=== PATIENT | female | born 1935 | race Caucasian/White ===

== ENCOUNTER 2017-05-09 07:10 | Outpatient (CLI) | payer MEDICARE ==
[~2017-05-09 07:10] MED LIST: ASPI-611 PO; ATOR80TA PO; BRIM5DRO16 EACHEYE; CHOL200035 PO; CLOP75TA35 PO; CYAN500T46 PO; ESCI20TA38 PO; EZET10TA13 PO; LEVO50TA PO; LISI-604 PO; METO50TA16 PO; MULT-342 PO; NITR0.4T51 SL; NORCO10T PO; PANT-47 PO; TRIM100T PO; VITC500T PO; [UNRECOGNIZED DRUG - OTHER] SQ
== END 2017-05-09 23:59 | disposition home or self-care (01) ==
LOC: DIABETIC 07:10
PROVIDERS: ATTEND Specialist
DX: E10.9 Type 1 diabetes mellitus without complications (principal); I10 Essential (primary) hypertension
CPT/HCPCS: G0108

== ENCOUNTER 2017-08-08 04:50 | Outpatient (CLI) | payer MEDICARE | END 2017-08-08 23:59 | disposition home or self-care (01) | LOC: DIABETIC 04:50 | PROVIDERS: ATTEND Specialist | DX: E10.9 Type 1 diabetes mellitus without complications (principal); I10 Essential (primary) hypertension | CPT/HCPCS: G0108 ==

== ENCOUNTER 2018-01-02 02:16 | Outpatient (CLI) | payer MEDICARE | END 2018-01-02 23:59 | disposition home or self-care (01) | LOC: DIABETIC 02:16 | PROVIDERS: ATTEND Specialist | DX: E10.9 Type 1 diabetes mellitus without complications (principal); I10 Essential (primary) hypertension; Z79.82 Long term (current) use of aspirin; Z95.1 Presence of aortocoronary bypass graft | CPT/HCPCS: G0108 ==

== ENCOUNTER 2018-01-29 18:09 | Inpatient (IN) | payer MEDICARE ==
[~2018-01-29] VITALS: Ht 170.2 cm; Wt 70.2 kg
[~2018-01-29 18:09] MED LIST changes: +0.9 % SODIUM CHLORIDE 10 ML VIAL ONE; +DOBUTamine/D5W 500mg/250ml premix IV ONE; +NORepinephrine 1 mg/ml inj IV ONE; +amiodarone 50MG/ML inj IV ONE; +atropine 0.1mg/ml 10ml syringe ONE; +calcium chloride 100 MG/1 ML inj IV ONE; +epiNEPHrine 0.1mg/ml 10ml syringe ONE; +magnesium sulf 1 GM/2 ML ONE; +sodium bicarbonate (8.4%) 1 mEq/ml syringe ONE
[2018-01-29 18:27] LABS: BASOPHILS % (AUTO) 0.3 % (0-1); EOSINOPHILS # (AUTO) 0.1 X10'3 (0-0.9); EOSINOPHILS % (AUTO) 2.5 % (0-6); HEMATOCRIT 37.7 % (35.0-45.0); HEMOGLOBIN 12.7 g/dl (12.0-16.0); LYMPHOCYTES # (AUTO) 1.1 X10'3 (1.1-4.8); LYMPHOCYTES % (AUTO) 22.1 % (21-51); MEAN CORPUSCULAR HEMOGLOBIN 34.3 PG (27.0-31.0); MEAN CORPUSCULAR HGB CONC 33.7 % (33.0-36.5); MEAN CORPUSCULAR VOLUME 101.9 FL (78-98); MEAN PLATELET VOLUME 10.3 FL (7.4-10.4); MONOCYTES # (AUTO) 0.4 X10'3 (0-0.9); MONOCYTES % (AUTO) 8.1 % (2-12); NEUTROPHILS # (AUTO) 3.3 X10'3 (1.8-7.7); PLATELET COUNT 160 X10'3 (140-440); RED CELL DISTRIBUTION WIDTH 13.5 % (11.5-14.5); WHITE BLOOD COUNT 4.9 X10'3 (4.5-11.0)
[2018-01-29 18:42] LABS: ALANINE AMINOTRANSFERASE 24 U/L (12-78); ALBUMIN 3.2 G/DL (3.4-5.0); ALBUMIN/GLOBULIN RATIO 1.3 (1.1-1.5); ALKALINE PHOSPHATASE 95 IU/L (46-116); ANION GAP 10 (8-16); ASPARTATE AMINO TRANSFERASE 24 U/L (10-37); BILIRUBIN,TOTAL 0.6 MG/DL (0.1-1.0); BLOOD UREA NITROGEN 23 MG/DL (7-18); BUN/CREATININE RATIO 17.2 (6.6-38.0); CALCIUM 8.4 MG/DL (8.5-10.1); CHLORIDE 98 MMOL/L (99-107); CREATININE 1.34 MG/DL (0.40-0.90); POTASSIUM 5.1 MMOL/L (3.5-5.1); SODIUM 135 MMOL/L (135-145); TOTAL CARBON DIOXIDE 27.2 MMOL/L (24-32); TOTAL PROTEIN 5.6 G/DL (6.4-8.2); eGFR 38 ML/MIN
[2018-01-29 18:46] LABS: INR 1.1 INR; PARTIAL THROMBOPLASTIN TIME 23 SECONDS (22-32); PROTHROMBIN TIME 10.9 SECONDS (9.0-12.0)
[2018-01-29 18:48] LABS: GLUCOSE 564 MG/DL (70-104)
[2018-01-29] MEDS ORDERED: nitroGLYCERIN 1gm ointment UD TP ONE (18:55)
[2018-01-29] MEDS ORDERED: insulin regular, human 10 units/0.1 ml syringe IV ONE (18:55)
[2018-01-29] MEDS ORDERED: HYDROcodone/acetaminophen 5mg/325mg tablet PO PRN (20:25)
[2018-01-29] MEDS ORDERED: acetaminophen 650mg rectal suppository RC PRN (20:25)
[2018-01-29] MEDS ORDERED: metoclopramide 5 mg/ml inj IV PRN (20:25)
[2018-01-29] MEDS ORDERED: morphine 2 MG/ML inj. syringe IV PRN (20:25)
[2018-01-29] MEDS ORDERED: diphenhydrAMINE 25mg capsule PO PRN (20:25)
[2018-01-29] MEDS ORDERED: acetaminophen 325mg tablet PO PRN (20:25)
[2018-01-29] MEDS ORDERED: HYDROmorphone 1 mg/ml syringe IV PRN ×2 (20:25)
[2018-01-29] MEDS ORDERED: diphenhydrAMINE 50 mg/ml inj IV PRN (20:25)
[2018-01-29] MEDS ORDERED: bisacodyl 10mg suppository rectal RC PRN (20:25)
[2018-01-29] MEDS ORDERED: magnesium hydroxide 30ml (MOM) UD suspension PO PRN (20:25)
[2018-01-29] MEDS ORDERED: mag hydrox/Alum hydrox/simeth 30ml oral suspension PO PRN (20:25)
[2018-01-29] MEDS ORDERED: glucagon, human recombinant 1mg kit SUBCUT PRN (20:35)
[2018-01-29] MEDS ORDERED: MESSAGE TO PHARMACY PO ONE (20:35)
[2018-01-29] MEDS ORDERED: dextrose ORAL solution 15 GM/59 ML bottle PO PRN ×2 (20:35)
[2018-01-29] MEDS ORDERED: dextrose 50%-water 50ml dispensing syringe IV PRN ×2 (20:35)
[2018-01-29] MEDS ORDERED: metoprolol tartrate 1mg/ml inj IV PRN (20:40)
[2018-01-29] MEDS ORDERED: aminophylline 250mg/10ml inj. IV PRN (20:40)
[2018-01-29] MEDS ORDERED: nitroGLYCERIN 0.4mg SUBLingual tab SL PRN (20:40)
[2018-01-29] MEDS ORDERED: regadenoson 0.4mg/5ml syringe IV ONE (20:40)
[2018-01-29] MEDS ORDERED: temazepam 15mg capsule PO PRN (21:00)
[2018-01-29] MEDS: sodium chloride 0.45% 1,000 ML IV SCH ×2 (21:14→22:22)
[2018-01-29] MEDS: lisinopril 10 MG tablet PO SCH (21:14)
[2018-01-29] MEDS: HYDROcodone/acetaminophen 10/325mg tab PO PRN (21:15)
[2018-01-29] MEDS ORDERED: RANO10003 PO (21:18)
[2018-01-29 21:38] LABS: D-DIMER 0.55 MG/L FEU (0-0.50)
[2018-01-29 22:00] VITALS: BP 119/75
[2018-01-29 22:05] LABS: CLARITY,URINE CLEAR (Clear); COLOR,URINE YELLOW (Yellow); GLUCOSE, URINE >=1000 mg/dl (Neg); KETONES,URINE 15 mg/dl (Neg); LEUKOCYTE ESTERASE ,URINE NEGATIVE (Neg); NITRITES, URINE POSITIVE (Neg); OCCULT BLOOD,URINE SMALL (Neg); PH,URINE 5.5 (4.8-8.0); PROTEIN,URINE NEGATIVE (Neg); UROBILINOGEN,URINE 0.2 E.U/dL (0.2-1.0)
[2018-01-29 22:22] LABS: UA COLLECTION TYPE NON-SPECIFIED
[2018-01-29 22:24] LABS: BACTERIA,URINE 4+ /HPF (Neg); MUCUS STRANDS NONE SEEN /LPF (Neg); RBC,URINE 0-2 /HPF (0-2); SQUAMOUS EPITHELIAL CELL,UR NONE SEEN /LPF (FEW); WBC,URINE 0-4 /HPF (0-4)
[2018-01-29 23:31] LABS: HEMOGLOBIN A1C 7.2 % (4.5-6.2)
[2018-01-29 23:35] LABS: LIPASE < 50 U/L (73-393); MAGNESIUM 1.9 MG/DL (1.5-2.4); PHOSPHORUS 3.2 MG/DL (2.3-4.5)
[2018-01-29] MEDS ORDERED: heparin 10,000 units/1 ML INJ IV ONE (23:50)
[2018-01-30] VITALS (11 sets, daily range): BP systolic 76–157; BP diastolic 38–93
[2018-01-30 00:54] LABS: BASOPHILS % (AUTO) 0.3 % (0-1); EOSINOPHILS # (AUTO) 0.1 X10'3 (0-0.9); EOSINOPHILS % (AUTO) 2.6 % (0-6); HEMATOCRIT 35.8 % (35.0-45.0); HEMOGLOBIN 11.7 g/dl (12.0-16.0); LYMPHOCYTES # (AUTO) 1.6 X10'3 (1.1-4.8); LYMPHOCYTES % (AUTO) 28.1 % (21-51); MEAN CORPUSCULAR HEMOGLOBIN 33.4 PG (27.0-31.0); MEAN CORPUSCULAR HGB CONC 32.7 % (33.0-36.5); MEAN CORPUSCULAR VOLUME 102.3 FL (78-98); MONOCYTES # (AUTO) 0.5 X10'3 (0-0.9); MONOCYTES % (AUTO) 9.5 % (2-12); NEUTROPHILS # (AUTO) 3.5 X10'3 (1.8-7.7); NEUTROPHILS % (AUTO) 59.5 % (42-75); PLATELET COUNT 151 X10'3 (140-440); RED CELL DISTRIBUTION WIDTH 12.6 % (11.5-14.5); WHITE BLOOD COUNT 5.7 X10'3 (4.5-11.0)
[2018-01-30 01:04] LABS: ALANINE AMINOTRANSFERASE 24 U/L (12-78); ALBUMIN 2.9 G/DL (3.4-5.0); ALBUMIN/GLOBULIN RATIO 1.2 (1.1-1.5); ALKALINE PHOSPHATASE 87 IU/L (46-116); ANION GAP 6 (8-16); ASPARTATE AMINO TRANSFERASE 22 U/L (10-37); BILIRUBIN,TOTAL 0.4 MG/DL (0.1-1.0); BLOOD UREA NITROGEN 23 MG/DL (7-18); BUN/CREATININE RATIO 21.1 (6.6-38.0); CALCIUM 8.4 MG/DL (8.5-10.1); CHLORIDE 102 MMOL/L (99-107); CREATININE 1.09 MG/DL (0.40-0.90); GLUCOSE 234 MG/DL (70-104); POTASSIUM 3.9 MMOL/L (3.5-5.1); SODIUM 138 MMOL/L (135-145); TOTAL CARBON DIOXIDE 30.3 MMOL/L (24-32); TOTAL PROTEIN 5.4 G/DL (6.4-8.2); eGFR 48 ML/MIN
[2018-01-30 01:07] LABS: CHOL/HDL RATIO 2.1 (0.00-4.99); CHOLESTEROL 129 MG/DL (0-200); HDL CHOLESTEROL 62 MG/DL (35-60); LDL CHOLESTEROL 60 MG/DL (50-100); TRIGLYCERIDES 37 MG/DL (20-135)
[2018-01-30 01:23] LABS: INR 1.1 INR; PARTIAL THROMBOPLASTIN TIME 23 SECONDS (22-32); PROTHROMBIN TIME 11.3 SECONDS (9.0-12.0)
[2018-01-30] MEDS: HYDROcodone/acetaminophen 10/325mg tab PO PRN ×2 (07:27→18:49)
[2018-01-30] MEDS ORDERED: heparin, porcine 5000 units/ml vial SQ SCH (08:00)
[2018-01-30] MEDS ORDERED: nitroGLYCERIN 0.2mg/hour patch TD SCH ×2 (08:00→14:50)
[2018-01-30] MEDS ORDERED: escitalopram 20mg tablet PO SCH (08:00)
[2018-01-30] MEDS ORDERED: non-formulary drug (Levothyroxine Sodium (Synthroid) 1 TAB) PO SCH (08:00)
[2018-01-30] MEDS ORDERED: ASPIRIN 81 MG PO SCH (08:00)
[2018-01-30] MEDS ORDERED: non-formulary drug (Atorvastatin Calcium* (Lipitor*) 1 TAB) PO SCH (08:00)
[2018-01-30] MEDS: ezetimibe 10mg tablet PO SCH (08:31)
[2018-01-30] MEDS: levoTHYROXINE 25mcg tablet PO SCH (08:31)
[2018-01-30] MEDS: clopidogrel 75mg tablet PO SCH (08:32)
[2018-01-30] MEDS: citalopram 20mg tablet PO SCH (08:32)
[2018-01-30] MEDS: docusate sod 100mg capsule PO SCH ×2 (08:32→20:00)
[2018-01-30] MEDS: aspirin 81mg tablet.DR PO SCH (08:32)
[2018-01-30] MEDS: lisinopril 10 MG tablet PO SCH (08:32)
[2018-01-30] MEDS: atorvastatin 20mg tablet PO SCH (08:32)
[2018-01-30] MEDS: pantoprazole 40mg Tablet.DR PO SCH (08:32)
[2018-01-30] MEDS: metoprolol tartrate 25mg tablet PO SCH ×2 (08:33→20:00)
[2018-01-30] MEDS: CefTRIAXone/D5W-Rocephin 1gm 50 ML IV SCH (11:07)
[2018-01-30] MEDS: ranolazine 500mg SR tablet (Q12H) PO SCH ×2 (11:14→20:27)
[2018-01-30] MEDS: nitroGLYCERIN 0.4mg SUBLingual tab SL PRN ×2 (12:10→13:22)
[2018-01-30] MEDS: isosorbide mononitrate 30mg tab.SR.24H PO SCH (13:52)
[2018-01-30] MEDS: insulin Lispro (HumaLOG) vial - multi-dose SQ SCH ×2 (14:05→22:49)
[2018-01-30] MEDS ORDERED: morphine 2 MG/ML inj. syringe IV ONE (14:25)
[2018-01-30] MEDS: sodium chloride 0.45% 1,000 ML IV SCH ×2 (15:30→18:42)
[2018-01-30] MEDS: heparin 10,000 units/1 ML INJ IV PRN (17:07)
[2018-01-30] MEDS: lactobacillus rhamnosus 10,000 MMU CELLS/CAPSULE PO SCH (20:27)
[2018-01-31 03:00] VITALS: BP 127/49
[2018-01-31] MEDS: sodium chloride 0.45% 1,000 ML IV SCH ×2 (03:33→13:26)
[2018-01-31 05:25] LABS: BASOPHILS % (AUTO) 0.3 % (0-1); EOSINOPHILS # (AUTO) 0.2 X10'3 (0-0.9); EOSINOPHILS % (AUTO) 3.9 % (0-6); HEMATOCRIT 30.4 % (35.0-45.0); HEMOGLOBIN 10.3 g/dl (12.0-16.0); LYMPHOCYTES # (AUTO) 1.6 X10'3 (1.1-4.8); LYMPHOCYTES % (AUTO) 29.8 % (21-51); MEAN CORPUSCULAR HEMOGLOBIN 34.4 PG (27.0-31.0); MEAN CORPUSCULAR HGB CONC 33.8 % (33.0-36.5); MEAN CORPUSCULAR VOLUME 101.8 FL (78-98); MEAN PLATELET VOLUME 10.5 FL (7.4-10.4); MONOCYTES # (AUTO) 0.5 X10'3 (0-0.9); MONOCYTES % (AUTO) 9.2 % (2-12); NEUTROPHILS # (AUTO) 3.1 X10'3 (1.8-7.7); NEUTROPHILS % (AUTO) 56.8 % (42-75); PLATELET COUNT 133 X10'3 (140-440); RED BLOOD COUNT 2.98 X10'6 (4.20-5.60); RED CELL DISTRIBUTION WIDTH 13.4 % (11.5-14.5); WHITE BLOOD COUNT 5.4 X10'3 (4.5-11.0)
[2018-01-31 05:57] LABS: ALANINE AMINOTRANSFERASE 18 U/L (12-78); ALBUMIN 2.5 G/DL (3.4-5.0); ALBUMIN/GLOBULIN RATIO 1.2 (1.1-1.5); ALKALINE PHOSPHATASE 72 IU/L (46-116); ANION GAP 5 (8-16); ASPARTATE AMINO TRANSFERASE 29 U/L (10-37); BILIRUBIN,TOTAL 0.4 MG/DL (0.1-1.0); BLOOD UREA NITROGEN 24 MG/DL (7-18); BUN/CREATININE RATIO 19.4 (6.6-38.0); CHLORIDE 102 MMOL/L (99-107); CREATININE 1.24 MG/DL (0.40-0.90); GLUCOSE 321 MG/DL (70-104); POTASSIUM 4.3 MMOL/L (3.5-5.1); SODIUM 135 MMOL/L (135-145); TOTAL PROTEIN 4.6 G/DL (6.4-8.2); eGFR 41 ML/MIN
[2018-01-31 06:00] VITALS: BP 127/21
[2018-01-31] MEDS: morphine 2 MG/ML inj. syringe IV PRN (07:29)
[2018-01-31] MEDS: lisinopril 10 MG tablet PO SCH (07:31)
[2018-01-31] MEDS: ezetimibe 10mg tablet PO SCH (07:31)
[2018-01-31] MEDS: aspirin 81mg tablet.DR PO SCH (07:31)
[2018-01-31] MEDS: CefTRIAXone/D5W-Rocephin 1gm 50 ML IV SCH (07:31)
[2018-01-31] MEDS: levoTHYROXINE 25mcg tablet PO SCH (07:31)
[2018-01-31] MEDS: lactobacillus rhamnosus 10,000 MMU CELLS/CAPSULE PO SCH ×2 (07:31→19:26)
[2018-01-31] MEDS: atorvastatin 20mg tablet PO SCH (07:31)
[2018-01-31] MEDS: isosorbide mononitrate 30mg tab.SR.24H PO SCH (07:32)
[2018-01-31] MEDS: ranolazine 500mg SR tablet (Q12H) PO SCH ×2 (07:32→19:26)
[2018-01-31] MEDS: pantoprazole 40mg Tablet.DR PO SCH (07:32)
[2018-01-31] MEDS: citalopram 20mg tablet PO SCH (07:32)
[2018-01-31] MEDS: clopidogrel 75mg tablet PO SCH (07:32)
[2018-01-31] MEDS: metoprolol tartrate 25mg tablet PO SCH ×2 (07:32→19:26)
[2018-01-31] MEDS: nitroGLYCERIN 0.4mg SUBLingual tab SL PRN ×3 (07:33→08:39)
[2018-01-31] MEDS: docusate sod 100mg capsule PO SCH ×2 (07:33→19:26)
[2018-01-31] MEDS: insulin Lispro (HumaLOG) vial - multi-dose SQ SCH ×3 (08:08→22:32)
[2018-01-31] MEDS ORDERED: isosorbide mononitrate 30mg tab.SR.24H PO ONE (10:50)
[2018-01-31 11:00] VITALS: BP 125/53
[2018-01-31] MEDS: heparin 10,000 units/1 ML INJ IV PRN (11:28)
[2018-01-31] MEDS: HYDROcodone/acetaminophen 10/325mg tab PO PRN ×2 (11:40→19:29)
[2018-01-31 15:00] VITALS: BP 107/44
[2018-01-31 23:00] VITALS: BP 147/67
[2018-02-01] VITALS (7 sets, daily range): BP systolic 97–144; BP diastolic 38–64
[2018-02-01 01:57] LABS: BASOPHILS % (AUTO) 0.3 % (0-1); EOSINOPHILS # (AUTO) 0.2 X10'3 (0-0.9); EOSINOPHILS % (AUTO) 2.8 % (0-6); HEMATOCRIT 29.7 % (35.0-45.0); HEMOGLOBIN 10.2 g/dl (12.0-16.0); LYMPHOCYTES # (AUTO) 2.3 X10'3 (1.1-4.8); LYMPHOCYTES % (AUTO) 31.8 % (21-51); MEAN CORPUSCULAR HGB CONC 34.4 % (33.0-36.5); MEAN CORPUSCULAR VOLUME 101.7 FL (78-98); MEAN PLATELET VOLUME 11.3 FL (7.4-10.4); MONOCYTES # (AUTO) 0.5 X10'3 (0-0.9); MONOCYTES % (AUTO) 7.1 % (2-12); NEUTROPHILS # (AUTO) 4.2 X10'3 (1.8-7.7); PLATELET COUNT 133 X10'3 (140-440); RED BLOOD COUNT 2.92 X10'6 (4.20-5.60); RED CELL DISTRIBUTION WIDTH 12.7 % (11.5-14.5); WHITE BLOOD COUNT 7.2 X10'3 (4.5-11.0)
[2018-02-01 02:03] LABS: ALANINE AMINOTRANSFERASE 24 U/L (12-78); ALBUMIN 2.4 G/DL (3.4-5.0); ALBUMIN/GLOBULIN RATIO 1.1 (1.1-1.5); ALKALINE PHOSPHATASE 70 IU/L (46-116); ANION GAP 8 (8-16); ASPARTATE AMINO TRANSFERASE 38 U/L (10-37); BILIRUBIN,TOTAL 0.3 MG/DL (0.1-1.0); BLOOD UREA NITROGEN 19 MG/DL (7-18); BUN/CREATININE RATIO 14.7 (6.6-38.0); CALCIUM 7.9 MG/DL (8.5-10.1); CHLORIDE 104 MMOL/L (99-107); CREATININE 1.29 MG/DL (0.40-0.90); GLUCOSE 348 MG/DL (70-104); POTASSIUM 3.2 MMOL/L (3.5-5.1); SODIUM 137 MMOL/L (135-145); TOTAL CARBON DIOXIDE 24.9 MMOL/L (24-32); TOTAL PROTEIN 4.5 G/DL (6.4-8.2); eGFR 40 ML/MIN
[2018-02-01] MEDS: morphine 2 MG/ML inj. syringe IV PRN ×2 (07:12→20:48)
[2018-02-01] MEDS: nitroGLYCERIN 0.4mg SUBLingual tab SL PRN ×4 (07:18→20:55)
[2018-02-01] MEDS: ondansetron/PF 4mg/2ml inj IV PRN (07:19)
[2018-02-01] MEDS: ranolazine 500mg SR tablet (Q12H) PO SCH ×2 (07:22→19:58)
[2018-02-01] MEDS: clopidogrel 75mg tablet PO SCH (07:23)
[2018-02-01] MEDS: isosorbide mononitrate 30mg tab.SR.24H PO SCH (07:23)
[2018-02-01] MEDS: lactobacillus rhamnosus 10,000 MMU CELLS/CAPSULE PO SCH ×2 (07:26→19:58)
[2018-02-01] MEDS: levoTHYROXINE 25mcg tablet PO SCH (07:26)
[2018-02-01] MEDS: atorvastatin 20mg tablet PO SCH (07:26)
[2018-02-01] MEDS: pantoprazole 40mg Tablet.DR PO SCH (07:26)
[2018-02-01] MEDS: ezetimibe 10mg tablet PO SCH (07:26)
[2018-02-01] MEDS: aspirin 81mg tablet.DR PO SCH (07:26)
[2018-02-01] MEDS: citalopram 20mg tablet PO SCH (07:26)
[2018-02-01] MEDS ORDERED: potassium Cl 20 mEq SR tablet PO STA (07:39)
[2018-02-01] MEDS: metoprolol tartrate 25mg tablet PO SCH ×2 (07:54→19:58)
[2018-02-01] MEDS: docusate sod 100mg capsule PO SCH ×2 (08:00→19:58)
[2018-02-01] MEDS: insulin Lispro (HumaLOG) vial - multi-dose SQ SCH ×2 (10:04→13:29)
[2018-02-01] MEDS: HYDROcodone/acetaminophen 10/325mg tab PO PRN ×2 (10:08→20:00)
[2018-02-01] MEDS ORDERED: morphine 2 MG/ML inj. syringe IV PRN (10:10)
[2018-02-01] MEDS ORDERED: morphine 2 MG/ML inj. syringe IV ONE (10:25)
[2018-02-01] MEDS: lisinopril 5mg tablet PO SCH (21:40)
[2018-02-02] VITALS (20 sets, daily range): BP systolic 80–147; BP diastolic 44–72
[2018-02-02] MEDS: morphine 2 MG/ML inj. syringe IV PRN (04:10)
[2018-02-02] MEDS: HYDROcodone/acetaminophen 10/325mg tab PO PRN (04:22)
[2018-02-02] MEDS: nitroGLYCERIN 0.4mg SUBLingual tab SL PRN (06:28)
[2018-02-02] MEDS: ondansetron/PF 4mg/2ml inj IV PRN (06:29)
[2018-02-02] MEDS: levoTHYROXINE 25mcg tablet PO SCH (07:00)
[2018-02-02 07:25] LABS: BASOPHILS % (AUTO) 0.1 % (0-1); EOSINOPHILS # (AUTO) 0.2 X10'3 (0-0.9); EOSINOPHILS % (AUTO) 2.2 % (0-6); HEMATOCRIT 34.1 % (35.0-45.0); HEMOGLOBIN 11.5 g/dl (12.0-16.0); LYMPHOCYTES # (AUTO) 0.9 X10'3 (1.1-4.8); LYMPHOCYTES % (AUTO) 10.3 % (21-51); MEAN CORPUSCULAR HEMOGLOBIN 34.6 PG (27.0-31.0); MEAN CORPUSCULAR HGB CONC 33.6 % (33.0-36.5); MEAN CORPUSCULAR VOLUME 103.1 FL (78-98); MEAN PLATELET VOLUME 11.1 FL (7.4-10.4); MONOCYTES # (AUTO) 0.4 X10'3 (0-0.9); MONOCYTES % (AUTO) 4.9 % (2-12); NEUTROPHILS # (AUTO) 7.5 X10'3 (1.8-7.7); NEUTROPHILS % (AUTO) 82.5 % (42-75); PLATELET COUNT 156 X10'3 (140-440); RED BLOOD COUNT 3.31 X10'6 (4.20-5.60); RED CELL DISTRIBUTION WIDTH 13.9 % (11.5-14.5); WHITE BLOOD COUNT 9.1 X10'3 (4.5-11.0)
[2018-02-02 07:51] LABS: ALANINE AMINOTRANSFERASE 28 U/L (12-78); ALBUMIN 2.9 G/DL (3.4-5.0); ALBUMIN/GLOBULIN RATIO 1.2 (1.1-1.5); ALKALINE PHOSPHATASE 78 IU/L (46-116); ANION GAP 15 (8-16); ASPARTATE AMINO TRANSFERASE 60 U/L (10-37); BILIRUBIN,TOTAL 0.5 MG/DL (0.1-1.0); BLOOD UREA NITROGEN 27 MG/DL (7-18); CALCIUM 8.9 MG/DL (8.5-10.1); CHLORIDE 101 MMOL/L (99-107); CREATININE 1.59 MG/DL (0.40-0.90); POTASSIUM 5.9 MMOL/L (3.5-5.1); SODIUM 136 MMOL/L (135-145); TOTAL CARBON DIOXIDE 19.8 MMOL/L (24-32); TOTAL PROTEIN 5.3 G/DL (6.4-8.2); eGFR 31 ML/MIN
[2018-02-02 07:57] LABS: GLUCOSE 614 MG/DL (70-104)
[2018-02-02] MEDS: isosorbide mononitrate 30mg tab.SR.24H PO SCH (08:00)
[2018-02-02] MEDS: lactobacillus rhamnosus 10,000 MMU CELLS/CAPSULE PO SCH ×2 (08:00→20:53)
[2018-02-02] MEDS: atorvastatin 20mg tablet PO SCH (08:00)
[2018-02-02] MEDS: citalopram 20mg tablet PO SCH (08:00)
[2018-02-02] MEDS ORDERED: CALCIUM GLUCONATE 1 GM in NORMAL SALINE 100ml IV.SOLN IV ONE (08:30)
[2018-02-02] MEDS ORDERED: midazolam 2 mg/2 ml injection IV ONE (08:40)
[2018-02-02] MEDS ORDERED: fentaNYL/PF 50MCG/1 ML 2ML syringe IV PRN (08:40)
[2018-02-02] MEDS ORDERED: FENTANYL-0.9 % NACL/PF 100 ML IV PRN (08:40)
[2018-02-02] MEDS ORDERED: albuterol 2.5 MG/3 ML nebule ONE (09:12)
[2018-02-02] MEDS: FENTANYL-0.9 % NACL/PF 100 ML IV PRN ×2 (09:30→17:21)
[2018-02-02] MEDS: midazolam 100mg in NS 100ml 100 ML IV PRN ×2 (09:30→17:20)
[2018-02-02] MEDS ORDERED: NORepinephrine 8mg/ 250ml NS 250 ML IV SCH (09:35)
[2018-02-02] MEDS ORDERED: heparin 10,000 units/1 ML INJ IV PRN (09:40)
[2018-02-02] MEDS ORDERED: heparin 10,000 units/1 ML INJ IV ONE (09:40)
[2018-02-02] MEDS ORDERED: levoFLOXACIN-Levaquin 250mg/D5 50 ML IV SCH (09:40)
[2018-02-02] MEDS ORDERED: albuterol 2.5 MG/3 ML nebule CONTNEB ONE (09:40)
[2018-02-02 09:44] LABS: BASOPHILS % (AUTO) 0.2 % (0-1); EOSINOPHILS # (AUTO) 0.2 X10'3 (0-0.9); EOSINOPHILS % (AUTO) 1.4 % (0-6); HEMATOCRIT 37.4 % (35.0-45.0); HEMOGLOBIN 12.1 g/dl (12.0-16.0); LYMPHOCYTES # (AUTO) 3.4 X10'3 (1.1-4.8); LYMPHOCYTES % (AUTO) 23.2 % (21-51); MEAN CORPUSCULAR HEMOGLOBIN 34.4 PG (27.0-31.0); MEAN CORPUSCULAR HGB CONC 32.4 % (33.0-36.5); MEAN CORPUSCULAR VOLUME 106.3 FL (78-98); MEAN PLATELET VOLUME 11.8 FL (7.4-10.4); MONOCYTES # (AUTO) 0.5 X10'3 (0-0.9); MONOCYTES % (AUTO) 3.6 % (2-12); NEUTROPHILS # (AUTO) 10.4 X10'3 (1.8-7.7); NEUTROPHILS % (AUTO) 71.6 % (42-75); PLATELET COUNT 166 X10'3 (140-440); RED BLOOD COUNT 3.52 X10'6 (4.20-5.60); RED CELL DISTRIBUTION WIDTH 14.7 % (11.5-14.5); WHITE BLOOD COUNT 14.6 X10'3 (4.5-11.0)
[2018-02-02] MEDS: NORepinephrine 8mg/ 250ml NS 250 ML IV SCH (09:45)
[2018-02-02 09:46] LABS: ABG BASE EXCESS -16.7 mmol/L (-2.0-3.0); ABG HCO3 11.1 mmol/L (22.0-26.0); ABG OXYGEN SATURATION 98.2 % (95-98); ABG PH (T) 7.163 (7.350-7.450); ABG PO2 (T) 135.4 mmHg (83-108); FCOHb 0.8 % (0.5-1.5); FMetHb 0.3 % (0.3-1.12); FO2Hb 97.1 % (94-100); MINUTE VOLUME 9 L/min; PATIENT TEMPERATURE 35.7; PEEP 5 cm H2O; RESPIRATORY RATE 16 b/min; RESPIRATORY RATE (OBSERVED) 16 b/min; TIDAL VOLUME 500 mL; TOTAL HEMOGLOBIN 12.4 G/dl (12.0-16.0)
[2018-02-02 10:05] LABS: ALANINE AMINOTRANSFERASE 93 U/L (12-78); ALBUMIN 2.7 G/DL (3.4-5.0); ALBUMIN/GLOBULIN RATIO 1.1 (1.1-1.5); ALKALINE PHOSPHATASE 95 IU/L (46-116); AMYLASE 19 U/L (25-115); ANION GAP 24 (8-16); ASPARTATE AMINO TRANSFERASE 170 U/L (10-37); BILIRUBIN,TOTAL 0.4 MG/DL (0.1-1.0); BLOOD UREA NITROGEN 27 MG/DL (7-18); BUN/CREATININE RATIO 12.6 (6.6-38.0); CALCIUM 10.6 MG/DL (8.5-10.1); CHLORIDE 101 MMOL/L (99-107); CREATININE 2.14 MG/DL (0.40-0.90); LIPASE < 50 U/L (73-393); MAGNESIUM 2.1 MG/DL (1.5-2.4); PHOSPHORUS 6.4 MG/DL (2.3-4.5); POTASSIUM 3.8 MMOL/L (3.5-5.1); SODIUM 141 MMOL/L (135-145); TOTAL CARBON DIOXIDE 15.6 MMOL/L (24-32); TOTAL PROTEIN 5.2 G/DL (6.4-8.2); eGFR 22 ML/MIN
[2018-02-02 10:13] LABS: TROPONIN I 7.22 NG/ML (0.0-0.05)
[2018-02-02 10:16] LABS: GLUCOSE 706 MG/DL (70-104)
[2018-02-02 10:18] LABS: INR 1.2 INR; PARTIAL THROMBOPLASTIN TIME 30 SECONDS (22-32); PROTHROMBIN TIME 11.9 SECONDS (9.0-12.0)
[2018-02-02] MEDS: docusate sod 100mg capsule PO SCH ×2 (11:29→20:53)
[2018-02-02] MEDS: metoprolol tartrate 25mg tablet PO SCH ×2 (11:30→20:53)
[2018-02-02] MEDS: clopidogrel 75mg tablet PO SCH (11:31)
[2018-02-02] MEDS: pantoprazole 40mg Tablet.DR PO SCH (11:31)
[2018-02-02] MEDS: ezetimibe 10mg tablet PO SCH (11:31)
[2018-02-02] MEDS: ranolazine 500mg SR tablet (Q12H) PO SCH ×2 (11:31→20:00)
[2018-02-02] MEDS ORDERED: LIDOcaine 1% (10mg/ml)w/preservative injection 20ml MDV ONE (13:02)
[2018-02-02] MEDS ORDERED: iohexol 350MG/ML 100ml bottle IV ONE ×2 (13:03→14:18)
[2018-02-02] MEDS ORDERED: heparin 1,000unit/ml 10ml vial 0 ML ONE (14:18)
[2018-02-02] MEDS ORDERED: iohexol 350 MG/ML 50ML vial IV ONE (14:21)
[2018-02-02] MEDS: insulin Lispro (HumaLOG) vial - multi-dose SQ SCH (15:33)
[2018-02-02] MEDS ORDERED: insulin regular, human vial - multi-dose SQ SCH (19:32)
[2018-02-02 20:22] LABS: D-DIMER 10.61 MG/L FEU (0-0.50)
[2018-02-02] MEDS: lisinopril 5mg tablet PO SCH (20:53)
[2018-02-02] MEDS: acetaminophen 325mg tablet PO PRN (21:01)
[2018-02-02] MEDS ORDERED: normal saline 500ml IV soln 500 ML IV ONE (22:45)
[2018-02-03] VITALS (9 sets, daily range): BP systolic 77–128; BP diastolic 42–83
[2018-02-03 03:04] LABS: ALANINE AMINOTRANSFERASE 166 U/L (12-78); ALBUMIN 2.4 G/DL (3.4-5.0); ALKALINE PHOSPHATASE 71 IU/L (46-116); ANION GAP 10 (8-16); ASPARTATE AMINO TRANSFERASE 614 U/L (10-37); BILIRUBIN,TOTAL 0.3 MG/DL (0.1-1.0); BLOOD UREA NITROGEN 31 MG/DL (7-18); BUN/CREATININE RATIO 22.3 (6.6-38.0); CALCIUM 8.7 MG/DL (8.5-10.1); CHLORIDE 110 MMOL/L (99-107); CREATININE 1.39 MG/DL (0.40-0.90); GLUCOSE 103 MG/DL (70-104); POTASSIUM 4.3 MMOL/L (3.5-5.1); SODIUM 142 MMOL/L (135-145); TOTAL CARBON DIOXIDE 21.9 MMOL/L (24-32); TOTAL PROTEIN 4.7 G/DL (6.4-8.2); eGFR 36 ML/MIN
[2018-02-03 03:34] LABS: BASOPHILS % (AUTO) 0.1 % (0-1); EOSINOPHILS % (AUTO) 0 % (0-6); HEMATOCRIT 30.4 % (35.0-45.0); HEMOGLOBIN 10.1 g/dl (12.0-16.0); LYMPHOCYTES # (AUTO) 2.3 X10'3 (1.1-4.8); LYMPHOCYTES % (AUTO) 16.5 % (21-51); MEAN CORPUSCULAR HEMOGLOBIN 33.9 PG (27.0-31.0); MEAN CORPUSCULAR HGB CONC 33.2 % (33.0-36.5); MEAN PLATELET VOLUME 11.1 FL (7.4-10.4); MONOCYTES % (AUTO) 7.3 % (2-12); NEUTROPHILS # (AUTO) 10.4 X10'3 (1.8-7.7); NEUTROPHILS % (AUTO) 76.1 % (42-75); PLATELET COUNT 193 X10'3 (140-440); RED BLOOD COUNT 2.98 X10'6 (4.20-5.60); WHITE BLOOD COUNT 13.6 X10'3 (4.5-11.0)
[2018-02-03] MEDS: FENTANYL-0.9 % NACL/PF 100 ML IV PRN (03:42)
[2018-02-03] MEDS: acetaminophen 325mg tablet PO PRN (03:42)
[2018-02-03 04:15] LABS: ABG BASE EXCESS -3.3 mmol/L (-2.0-3.0); ABG HCO3 18.6 mmol/L (22.0-26.0); ABG OXYGEN SATURATION 98.7 % (95-98); ABG PCO2 (T) 26.2 mmHg (32.0-45.0); ABG PH (T) 7.475 (7.350-7.450); ABG PO2 (T) 172.1 mmHg (83-108); FCOHb 0.3 % (0.5-1.5); FMetHb 0.3 % (0.3-1.12); FO2Hb 98.1 % (94-100); MINUTE VOLUME 9 L/min; PATIENT TEMPERATURE 38.7; PEEP 5 cm H2O; RESPIRATORY RATE 16 b/min; RESPIRATORY RATE (OBSERVED) 16 b/min; TIDAL VOLUME 500 mL; TOTAL HEMOGLOBIN 10.6 G/dl (12.0-16.0)
[2018-02-03 04:19] LABS: LARGE PLATELETS FEW; PLATELET ESTIMATE NORMAL
[2018-02-03] MEDS: NORepinephrine 8mg/ 250ml NS 250 ML IV SCH (07:27)
[2018-02-03] MEDS ORDERED: aspirin 325mg tablet, delayed-release (Ecotrin) PO SCH (08:00)
[2018-02-03] MEDS ORDERED: DOBUTamine-DoBUTrex 500mg/D5W 0 ML IV ONE (08:24)
[2018-02-03] MEDS ORDERED: VASOPRESSIN 60 UNITS in NS 100ml IV ONE (08:40)
[2018-02-03] MEDS ORDERED: mineral oil/petrolatum ophthal oint EACHEYE SCH (14:00)
== END 2018-02-03 12:00 | disposition expired ==
LOC: ER 18:09 → ED HOLD 20:24 → PCU 3S 21:58 → ICU 2S 02-02 08:51
PROVIDERS: ADMIT Family Medicine; ATTEND Internal Medicine Critical Care Medicine
PROC: 5A1935Z Respiratory Ventilation, Less than 24 Consecutive Hours (ICD-10-PCS; principal; 2018-02-02)
PROC: 0BH18EZ Insertion of Endotracheal Airway into Trachea, Via Natural or Artificial Opening Endoscopic (ICD-10-PCS; 2018-02-02)
PROC: 5A12012 Performance of Cardiac Output, Single, Manual (ICD-10-PCS; 2018-02-02)
PROC: 04HY32Z Insertion of Monitoring Device into Lower Artery, Percutaneous Approach (ICD-10-PCS; 2018-02-02)
PROC: 4A133B1 Monitoring of Arterial Pressure, Peripheral, Percutaneous Approach (ICD-10-PCS; 2018-02-02)
PROC: 4A133J1 Monitoring of Arterial Pulse, Peripheral, Percutaneous Approach (ICD-10-PCS; 2018-02-02)
PROC: 06HY33Z Insertion of Infusion Device into Lower Vein, Percutaneous Approach (ICD-10-PCS; 2018-02-02)
PROC: 4A023N7 Measurement of Cardiac Sampling and Pressure, Left Heart, Percutaneous Approach (ICD-10-PCS; 2018-02-02)
PROC: B2111ZZ Fluoroscopy of Multiple Coronary Arteries using Low Osmolar Contrast (ICD-10-PCS; 2018-02-02)
PROC: B2151ZZ Fluoroscopy of Left Heart using Low Osmolar Contrast (ICD-10-PCS; 2018-02-02)
PROC: B2131ZZ Fluoroscopy of Multiple Coronary Artery Bypass Grafts using Low Osmolar Contrast (ICD-10-PCS; 2018-02-02)
PROC: B2181ZZ Fluoroscopy of Left Internal Mammary Bypass Graft using Low Osmolar Contrast (ICD-10-PCS; 2018-02-02)
PROC: 5A12012 Performance of Cardiac Output, Single, Manual (ICD-10-PCS; 2018-02-03)
PROC: 5A2204Z Restoration of Cardiac Rhythm, Single (ICD-10-PCS; 2018-02-03)
DX: I21.4 Non-ST elevation (NSTEMI) myocardial infarction (principal); J96.00 Acute respiratory failure, unspecified whether with hypoxia or hypercapnia; N39.0 Urinary tract infection, site not specified; I13.0 Hypertensive heart and chronic kidney disease with heart failure and stage 1 through stage 4 chronic kidney disease, or unspecified chronic kidney disease; I47.1 Supraventricular tachycardia; I50.32 Chronic diastolic (congestive) heart failure; I25.110 Atherosclerotic heart disease of native coronary artery with unstable angina pectoris; I44.7 Left bundle-branch block, unspecified; E78.5 Hyperlipidemia, unspecified; E87.5 Hyperkalemia; E11.22 Type 2 diabetes mellitus with diabetic chronic kidney disease; E11.65 Type 2 diabetes mellitus with hyperglycemia; N18.3 Chronic kidney disease, stage 3 (moderate); E03.9 Hypothyroidism, unspecified; G89.4 Chronic pain syndrome; M54.9 Dorsalgia, unspecified; R23.0 Cyanosis; I46.9 Cardiac arrest, cause unspecified; M48.00 Spinal stenosis, site unspecified; E87.6 Hypokalemia; I25.2 Old myocardial infarction; Z79.891 Long term (current) use of opiate analgesic; Z95.1 Presence of aortocoronary bypass graft; Z79.899 Other long term (current) drug therapy; Z79.82 Long term (current) use of aspirin; Z86.73 Personal history of transient ischemic attack (TIA), and cerebral infarction without residual deficits; Z82.49 Family history of ischemic heart disease and other diseases of the circulatory system; Z82.5 Family history of asthma and other chronic lower respiratory diseases
CPT/HCPCS: 36415; 36600; 71045; 80053; 80061; 81001; 82150; 82803; 82948; 83036; 83605; 83690; 83735; 83880; 84100; 84145; 84443; 84484; 85018; 85025; 85379; 85610; 85730; 87070; 93005; 93306; 93308; 93459; 94002; 94003; 94640; 94760; 96374; 99152; 99153; 99285; A6257; C1769; J0171; J0282; J0461; J0610; J0696; J1170; J1250; J1644; J1815; J1956; J2001; J2250; J2270; J2405; J3010; J3475; J3490; J7030; Q9967